=== PATIENT | female | born 1975 | race Caucasian/White ===

== ENCOUNTER 2019-09-17 09:01 | Day surgery (SDC) | payer BC ==
--- NOTE | 2019-09-17 07:44 | HP ---
DATE OF SURGERY: 09/17/2019 HISTORY OF PRESENT ILLNESS: The patient presents to the office with left groin pain. She also had some degenerative bone issues and deals with some left hip pain. She does have an area in her left groin with a bulge in the area also with a reducible bulge. She certainly has probably two areas in the groin. PAST MEDICAL HISTORY: Degenerative bone disease. PAST SURGICAL HISTORY: Hernia repair on the right side. Breast augmentation. Partial hysterectomy. Cholecystectomy. ALLERGIES: NKDA. MEDICATIONS: None reported. FAMILY HISTORY: Heart disease, diabetes. SOCIAL HISTORY: None. REVIEW OF SYSTEMS: CONSTITUTIONAL: Denies fever or chills. CHEST: Denies shortness of breath. CVS: Denies chest pain. ABDOMEN: Denies abdominal pain, nausea, vomiting, diarrhea, constipation or rectal bleeding. : Denies dysuria or hematuria. Reports left groin pain. PHYSICAL EXAMINATION: GENERAL: No acute distress. CHEST: Nonlabored. No shortness of breath. CVS: Regular rate and rhythm. ABDOMEN: Soft, nontender to palpation. Left groin bulge able to be reduced. EXTREMITIES: No edema. NEUROLOGIC: Alert. PSYCHIATRIC: Appropriate. IMPRESSION: She may have an inguinal and/or femoral hernia on her left groin. PLAN: Left femoral inguinal exploration with possible mesh. As dictated by Michell Noland NP.
[~2019-09-17 09:01] MED LIST: KEFZOL 1 GM ONE; Lactated Ringers 1,000 ML IV ONE; Sensorcaine 0.25% 10 ML ONE
[2019-09-17] MEDS ORDERED: CEFAZOLIN 2 GM-D5W BAG** 2 GM/50 ML ML IV SCH (09:30)
[2019-09-17] MEDS ORDERED: Lactated Ringers 1,000 ML IV SCH (09:30)
[2019-09-17 09:59] LABS: ALBUMIN 4.5 g/dL (3.5-5.0); ALKALINE PHOSPHATASE 72 U/L (38-126); ANION GAP 14.2 MEQ/L (5-15); BLOOD UREA NITROGEN 14 mg/dL (7-17); CHLORIDE 103 mmol/L (98-107); Calcium 9.9 mg/dL (8.4-10.2); Carbon Dioxide 29 mmol/L (22-30); Creatinine 1 0.78 mg/dL (0.52-1.04); Glucose 119 mg/dL (74-106); Potassium 4.2 mmol/L (3.5-5.1); SGOT/AST 19 U/L (14-36); SGPT/ALT 11 U/L (0-35); SODIUM 142 mmol/L (137-145); Total Protein 7.5 g/dL (6.3-8.2)
[2019-09-17] MEDS ORDERED: Versed 2 MG/2 ML Injection ONE (12:33)
[2019-09-17] MEDS ORDERED: DIPRIVAN 200 MG/20 ML IV ONE (12:33)
[2019-09-17] MEDS ORDERED: SUBLIMAZE 250 MCG/5 ML ONE (12:33)
[2019-09-17] MEDS ORDERED: TORAdol 30 mg Injection ONE (13:09)
[2019-09-17] MEDS ORDERED: SUBLIMAZE 100 MCG/2 ML ONE (13:54)
--- NOTE | 2019-09-17 14:36 | OP ---
SURGERY DATE/TIME: 09/17/2019 1232 PREOPERATIVE DIAGNOSIS: Left inguinal pain possible hernia. POSTOPERATIVE DIAGNOSIS: Left inguinal hernia both indirect and direct. PROCEDURE: Left inguinal hernia with mesh. SURGEON: Mando Ledezma M.D. ANESTHESIA: General. COMPLICATIONS: None. CONDITION: Stable. INDICATION: The patient with pain left groin. Examined, possible hernia. The patient has had previous one on the right side five or six years ago. She desired to have exploration. It was symptomatic enough. DESCRIPTION OF PROCEDURE: She was taken to surgery. General anesthetic. Routine prep and drape. A limited left groin incision was marked. Time out had been performed. 0.25% Marcaine. Dissection carried down. Very prominent Serena layer. External ring identified. External oblique opened along the direction of its fibers. Ilioinguinal nerve preserved with a vessel loop. The cord was skeletonized. There was inch indirect hernia highly ligated and tied off. The ilioinguinal nerve had been but the residual round ligament was really quite negligible and was taken at the symphysis pubis and was taken with the external ring. A direct component was present. The floor was reinforced with a 1 x 4 mesh trimmed to size and secured very deliberately into place with 2-0 Prolene. This totally reinforced the direct and the indirect area. The fascia was very smooth and laid very nicely. External oblique closed with 2-0 Vicryl. Serena fascia closed with 2-0 Vicryl. Skin closed with 4-0 Vicryl. 10 cc of Marcaine had been injected. The patient tolerated the procedure satisfactorily. Findings discussed with the in the waiting room.
[2019-09-17] MEDS ORDERED: NORCO 5/325 MG PO PRN (15:15)
[2019-09-17 15:47] VITALS: BP 126/92; PULSE 82; O2SAT 100
== END 2019-09-17 15:55 | disposition home or self-care (01) ==
LOC: SDC 09:01
PROVIDERS: ATTEND Surgery
DX: K40.90 Unilateral inguinal hernia, without obstruction or gangrene, not specified as recurrent (principal); M89.8X8 Other specified disorders of bone, other site; M25.552 Pain in left hip; I34.1 Nonrheumatic mitral (valve) prolapse
CPT/HCPCS: 36415; 49505; 80053; 93005; C1781; J0690; J1885; J2250; J2704; J3010; A9270-GY